=== PATIENT | female | born 1975 | race Caucasian/White ===

== ENCOUNTER 2016-08-29 08:43 | Day surgery (SDC) | payer BC ==
--- NOTE | 2016-08-29 07:03 | History and Physical Report ---
DATE: 08/29/2016. CHIEF COMPLAINT: This patient presents with a history of an intractable lumbar radiculitis which is postlaminectomy. HISTORY OF PRESENT ILLNESS: Due to the failure of all therapies, she is here for a spinal infusion trial with hydromorphone using an implanted catheter technique to determine if the implantation of a permanent system can be of any value in pain control. PAST MEDICAL HISTORY: Cardiac arrhythmia, seizure disorder. PAST SURGICAL HISTORY: Lumbar spinal surgery, gallbladder surgery, tubal ligation. MEDICATIONS ON ADMISSION: To be provided. ALLERGIES: Anti-inflammatories. SOCIAL HISTORY: Smoking, caffeine. FAMILY HISTORY: Thyroid disease, asthma, diabetes, coronary artery disease, hypertension, cancer. REVIEW OF SYSTEMS: The patient is appropriate and in no acute distress. The remainder of the systems review shows depression and difficulty sleeping. PHYSICAL EXAMINATION: General: Height is 5 feet, 3 inches. Weight is 120. Vital Signs: Unavailable. HEENT: Within normal limits. Lungs: Clear. Heart: Regular rate and rhythm. Abdomen: Nontender. Musculoskeletal: Examination of the musculoskeletal system shows diffuse tenderness throughout the lumbar spine. Range of motion causes pain throughout the low back and extending into the lower extremities. Ambulation: No assistive device utilized. Neurologic: Cranial nerves are intact. IMPRESSION: 1. POSTLUMBAR LAMINECTOMY SYNDROME, ICD-10 CODE M96.1. 2. LUMBAR RADICULITIS, ICD-10 CODE M54.16 AND M54.17. PLAN: The patient is here for an implanted spinal catheter infusion trial with hydromorphone to determine if implanting a permanent system would be of any value in pain control. The implanted catheter will involve an incision and the anchoring of the catheter to the supraspinous fascia which will be placed into the spinal space. The implanted catheter technique will minimize the incidence of spinal headache, although an epidural blood patch will also be performed. The implanted catheter will minimize the number of penetrations into the spinal space. The potential risks, side effects, and complications including spinal cord injury, nerve root injury, and spinal headache have been carefully reviewed and discussed. Information from the salesforce developer including a complete booklet informational based as well as CD ROM which outlines the side effects and complications have also been reviewed by the patient and discussed. We will consider this an outpatient procedure, although an overnight stay will be evaluated. LORRIE YUNG D.O. Date & Time JOB NUMBER: [id number] cc: Margarita Rogers
[~2016-08-29 08:43] MED LIST: ACETAMINOPHEN 1,000 MG/100 ML BTL IV ONE; CEFAZOLIN 2 Gram 2 GM/50 ML BAG IVPB ONE; FAMOTIDINE 20MG TABLET PO ONE; HYDROMORPHONE PF 2MG/ML AMP 0.004 MG in 0.9 % SODIUM CHLORIDE 10ML VIA 0.998 ML IV ONE; HYDROMORPHONE PF 2MG/ML AMP 2 MG in 0.9 % SODIUM CHLORIDE 500ML 499 ML IV ONE; MECLIZINE 25 MG TABLET PO ONE; METOCLOPRAMIDE 10 MG TABLET PO ONE
[2016-08-29] MEDS ORDERED: METOCLOPRAMIDE HCL 10 MG/2 ML VIAL IVP PRN (12:46)
[2016-08-29] MEDS ORDERED: OXYCODONE/APAP 10MG-325MG TABLET PO PRN ×2 (12:46)
[2016-08-29] MEDS ORDERED: SENNOSIDES/DOCUSATE SODIUM UD CAPSULE PO PRN ×2 (12:46)
[2016-08-29] MEDS ORDERED: NALOXONE 0.4 MG/1 ML VIAL IVP PRN (12:46)
[2016-08-29] MEDS ORDERED: AL HYDROX/MAG HYDROX 30ML UD PO PRN (12:46)
[2016-08-29] MEDS ORDERED: DIPHENHYDRAMINE HCL 25 MG CAPSULE PO PRN ×2 (12:46)
[2016-08-29] MEDS ORDERED: ACETAMINOPHEN 325 MG TAB PO PRN ×2 (12:46)
[2016-08-29] MEDS ORDERED: DIPHENHYDRAMINE HCL IV 50 MG/ML VIAL IVP PRN ×2 (12:46)
[2016-08-29] MEDS ORDERED: HYDROCODONE/APAP 7.5/325MG TABLET PO PRN (12:46)
[2016-08-29] MEDS ORDERED: TEMAZEPAM 15 MG CAPSULE PO PRN ×2 (12:46)
[2016-08-29] MEDS ORDERED: METOCLOPRAMIDE 10 MG TABLET PO PRN (12:46)
[2016-08-29] MEDS ORDERED: HYDROMORPHONE HCL 2 MG/ML VIAL IM PRN (12:46)
[2016-08-29] MEDS ORDERED: HYDROMORPHONE HCL 1 MG/ML CPJ IM PRN (12:46)
[2016-08-29] MEDS ORDERED: CLONAZEPAM 1MG TABLET PO PRN (12:48)
[2016-08-29] MEDS ORDERED: CAFFEINE 200 MG PO ONE (13:00)
[2016-08-29] MEDS: RINGERS SOLUTION,LACTATED 1,000 ML IV SCH (13:08)
[2016-08-29] MEDS: GABAPENTIN 300 MG CAPSULE PO SCH ×3 (14:26→21:07)
[2016-08-29] MEDS ORDERED: KETOROLAC 30 MG/ML VIAL IVP ONE (15:08)
[2016-08-29] MEDS ORDERED: BUPIVACAINE 0.5% W/EPI MPF 30 ML VIAL IVP ONE (15:08)
[2016-08-29] MEDS ORDERED: CEFAZOLIN 1G VIAL IM ONE (15:08)
[2016-08-29] MEDS ORDERED: HYDROMORPHONE HCL 2 MG/ML VIAL IV ONE (15:08)
[2016-08-29] MEDS ORDERED: FENTANYL PF 100MCG/2ML VIAL IV ONE ×2 (15:08→15:47)
[2016-08-29] MEDS ORDERED: LIDOCAINE 1% W/EPI 1:200,000 MPF 30ML SQ ONE (15:08)
[2016-08-29] MEDS ORDERED: PROPOFOL 10 MG/ML VIAL IV ONE (15:47)
[2016-08-29] MEDS ORDERED: *PACU ONLY* KETAMINE HCL 10 MG/ML (20ML) VIAL IV ONE (15:47)
[2016-08-29] MEDS ORDERED: MIDAZOLAM HCL 2MG/2ML VIAL IV ONE (15:47)
[2016-08-29] MEDS ORDERED: LIDOCAINE 2% MDV (20MG/ML) 20ML VIAL IV ONE (15:47)
--- NOTE | 2016-08-29 16:02 | Operative Note - Ferro ---
DATE OF SURGERY: 08/29/16 PREOPERATIVE DIAGNOSES: 1. POST LUMBAR LAMINECTOMY SYNDROME, ICD-10 CODE = M96.1 2. LUMBAR RADICULITIS, ICD-10 CODE = M54.16 AND M54.17. OPERATION: 1. FLUOROSCOPICALLY-GUIDED ACCESS SPINAL SPACE AT L2-3. PLACEMENT OF THIN- WALLED SPINAL CATHETER ADVANCED T10. 2. DIAGNOSTIC MYELOGRAPHY WITH RADIOLOGIC SUPERVISION AND INTERPRETATION. 3. SPINAL OPIOID BOLUS HYDROMORPHONE 0.003 MG. 4. INCISION, SUBCUTANEOUS DISSECTION, AND ANCHORING SPINAL CATHETER TO SUPRASPINOUS FASCIA USING ANCHORING DEVICE AND NONABSORBABLE SUTURE. 5. INCISION, SUBCUTANEOUS DISSECTION, AND CREATION OF SUBCUTANEOUS POUCH AT RIGHT POSTERIOR/SUPERIOR GLUTEAL MARGIN FOR EVENTUAL PLACEMENT OF PUMP. 6. TUNNELING BETWEEN POUCHES. PLACEMENT OF EXTERNAL PORTION OF SPINAL CATHETER INTO PUMP, POSTERIOR POUCH. INTERFACE CATHETER WITH SECOND CATHETER COMPONENT WITH CONNECTOR. 7. TUNNELING SECONDARY CATHETER 6 CM SUPERIOR EXITING SKIN. 8. INTERFACE EXTERNAL CATHETER TO INFUSION DEVICE SET TO DELIVER BY CONTINUOUS INFUSION HYDROMORPHONE AT 0.04 MG A DAY. 9. EPIDURAL BLOOD PATCH AT L3-4. 20 ML AUTOLOGOUS BLOOD DRAWN STERILE TECHNIQUE , LEFT ANTECUBITAL. SURGEON: LORRIE YUNG D.O. ANESTHESIA: LOCAL SEDATION. ANESTHESIA PROVIDER: LEONID PINTO CRNA. INDICATION: This patient presents with a history of an intractable lumbar radiculitis secondary to spinal surgery. Due to the failure of all therapies, she is here for an implanted spinal catheter infusion trial Hydromorphone to determine if the implantation of a permanent system can be of any value in pain control. PROCEDURE: Intravenous line, vital sign monitoring, IV sedation, prepped and draped sterile technique. Patient position prone. Under imaging, the spinal interspace at L2/3 was marked, infiltrated, and a 15-gauge spinal needle paramedian approach beveled with a long axis, was inserted into the spinal space. Using AP and lateral imaging, there was no fasciculations. No leg irritation. No indications of pain. The catheter was advanced and positioned midline T10. Diagnostic myelography performed, the resulting flow characteristics were appropriate in the space. No obstructions or redirections. A bolus of Hydromorphone 0.003 mg given into the spinal space. The skin above and below the needle infiltrated, incision made, and subcutaneous dissection was conducted to the supraspinous fascia. The needle was removed and the catheter was anchored to the supraspinous fascia using an anchoring device and nonabsorbable suture. At the right posterior/superior gluteal margin, a site picked by the patient for eventual pump implant, skin infiltrated, incision made , and subcutaneous dissection was conducted to form a small pouch. A tunneling tool was used to carry the pump catheter into the gluteal pouch and then the catheter was intersected and revised with a secondary catheter component by way of connector. The secondary catheter component was then tunneled 6 cm above this pouch exiting the skin. The external catheter was then interfaced with an infusion device, which was set to deliver by continuous infusion Hydromorphone at 0.04 mg a day. The midline incision was closed Vicryl for fascia, running subcuticular Vicryl for skin. The gluteal margin pouch was closed with nylon suture. At L3/4, one level below the dural puncture, skin infiltrated and an 18- gauge Tuohy needle with [id number] into the space and 20 mL drawn sterile technique autologous blood from the left antecubital. This blood was placed onto the field then an epidural blood patch was performed at this level with this blood. The dressing was reinforced. She was transported to the Recovery Room stable, flat, pillow under head and knees. She will be monitored for five hours, slowly elevated for one, if stable, discharge home. DISCHARGE INSTRUCTIONS: 1. The sites to remain clean and dry. No showering or bathing in any way that would compromise the dressings. If it happens, contact clinic. 2. Standard medications including Levaquin, the antibiotic, 500 mg once a day for 14 days. 3. Spinal opioid side-effects including; respiratory depression, nausea, vomiting, constipation, urinary retention, light-headedness, or rash have all been discussed and reviewed. All other instructions were provided, numbers to contact, problems given. At that point, the patient will be discharged. cc: Dr. Soares JOB NUMBER: [id number] MTDD
[2016-08-29] MEDS: CEFAZOLIN 2 Gram 2 GM/50 ML BAG IVPB SCH (17:34)
[2016-08-29] MEDS ORDERED: QUETIAPINE FUMARATE 100 MG TABLET PO SCH (22:00)
[2016-08-29] MEDS: HYDROCODONE/APAP 7.5/325MG TABLET PO PRN (22:55)
[2016-08-30] MEDS: RINGERS SOLUTION,LACTATED 1,000 ML IV SCH (01:16)
[2016-08-30] MEDS: CEFAZOLIN 2 Gram 2 GM/50 ML BAG IVPB SCH ×2 (02:18→09:32)
[2016-08-30] MEDS: HYDROCODONE/APAP 7.5/325MG TABLET PO PRN (09:32)
[2016-08-30] MEDS: GABAPENTIN 300 MG CAPSULE PO SCH (09:33)
[2016-08-30] MEDS ORDERED: DULOXETINE HCL 30 MG CAPSULE.DR PO SCH (10:00)
--- NOTE | 2016-08-30 12:28 | RADIOLOGY REPORT ---
EXAM: THORACOLUMBAR SPINE, ONE VIEW HISTORY: PAIN PUMP TRIAL. TECHNIQUE: A single AP portable view of the lumbar and lower thoracic portions of the spine were obtained. Comparison: None. FINDINGS: There is normal bone mineralization. Posterior fixation hardware is noted on the left at the lower lumbar levels. An intraspinal catheter is in place likely entering the spinal canal at the L2 level. Its radiopaque tip projects at the T10 vertebral body level. Post cholecystectomy change is present. IMPRESSION: INTRASPINAL CATHETER IN PLACE, DISCUSSED ABOVE. JOB NUMBER: [id number] MTDD
== END 2016-08-30 10:45 | disposition home or self-care (01) ==
LOC: SUR 08:43 → MEDSURG 12:50 → SUR 08-30 10:45
PROVIDERS: ATTEND Pain Medicine Interventional Pain Medicine
DX: M96.1 Postlaminectomy syndrome, not elsewhere classified (principal); M54.16 Radiculopathy, lumbar region; M54.17 Radiculopathy, lumbosacral region; F31.9 Bipolar disorder, unspecified
CPT/HCPCS: 72020; 62350; 00630; Q9967; J1885; J3010; J1170 ×3; J0690 ×2; J7040; J7120

== ENCOUNTER 2016-09-12 08:48 | Day surgery (SDC) | payer BC ==
--- NOTE | 2016-09-12 07:23 | History and Physical Report ---
DATE: 09/12/2016. CHIEF COMPLAINT: This patient presents with a history of a postlaminectomy radiculitis. Due to the failure of all therapies she had placement of an implanted spinal catheter infusion trial with hydromorphone. She has achieved up to 50 to 75 percent pain control. HISTORY OF PRESENT ILLNESS: During the previous five to seven days, she developed peripheral edema and abdominal distension. This was found to be related to a recent medication set up and taken through a psychiatrist in the form valproic acid with Depakote. The side effect was felt not to be the pump but the new medication. PAST MEDICAL HISTORY: Cardiac arrhythmia, seizure disorder. PAST SURGICAL HISTORY: Lumbar spinal surgery, gallbladder surgery, tubal ligation. MEDICATIONS ON ADMISSION: To be provided. ALLERGIES: Anti-inflammatories. SOCIAL HISTORY: Smoking and caffeine. FAMILY HISTORY: Thyroid disease, asthma, diabetes, coronary artery disease, hypertension, cancer. REVIEW OF SYSTEMS: The patient is appropriate and in no acute distress. The remainder of the systems review includes difficulty sleeping. PHYSICAL EXAMINATION: General: Height is 5 feet, 3 inches. Weight is 120 pounds. Vital Signs: Unavailable. HEENT: Within normal limits. Lungs: Clear. Heart: Regular rate and rhythm. Abdomen: Nontender. Musculoskeletal: Examination of the musculoskeletal system shows the primary pain pattern to be low back, hip, and leg. The dressings for the implanted spinal catheter trial are intact. The externalized catheter and all of the catheter components are still well within the sterile dressing. Neurologic: Cranial nerves are intact. IMPRESSION: 1. POSTLUMBAR LAMINECTOMY SYNDROME, ICD-10 CODE M96.1. 2. LUMBAR RADICULITIS, ICD-10 CODE M54.16 AND M54.17. 3. IMPLANTED SPINAL CATHETER INFUSION TRIAL WITH HYDROMORPHONE. PLAN: With respect to the trial with 50 to 75 percent pain control, the patient wants to move to the implant as quickly as possible. The side effects which were somewhat concerning appear to be related to a recently started oral medication. We have explained the potential risks of implanting the device only to find out later that the device may have been contributing to the peripheral edema. This would require medication change or even, ultimately, removal of the device. She understands and wants to move forward. LORRIE YUNG D.O. Date & Time JOB NUMBER: [id number] cc: Margarita Manning
[~2016-09-12 08:48] MED LIST changes: +HYDROMORPHONE HCL 0.016 GM in 0.9 % SODIUM CHLORIDE 10ML VIA 20 ML IV ONE; +HYDROMORPHONE HCL/PF 0.002 MG in 0.9 % SODIUM CHLORIDE 10ML VIA 0.998 ML IVP ONE; -HYDROMORPHONE PF 2MG/ML AMP 0.004 MG in 0.9 % SODIUM CHLORIDE 10ML VIA 0.998 ML IV ONE; -HYDROMORPHONE PF 2MG/ML AMP 2 MG in 0.9 % SODIUM CHLORIDE 500ML 499 ML IV ONE
[2016-09-12] MEDS ORDERED: BUPIVACAINE 0.5% W/EPI MPF 30 ML VIAL IVP ONE (15:02)
[2016-09-12] MEDS ORDERED: LIDOCAINE 1% W/EPI 1:200,000 MPF 30ML SQ ONE (15:02)
[2016-09-12] MEDS ORDERED: CEFAZOLIN 1G VIAL IM ONE (15:02)
[2016-09-12] MEDS ORDERED: OXYCODONE/APAP 10MG-325MG TABLET PO ONE (15:02)
[2016-09-12] MEDS ORDERED: *PACU ONLY* KETAMINE HCL 10 MG/ML (20ML) VIAL IV ONE (15:13)
[2016-09-12] MEDS ORDERED: PROPOFOL 10 MG/ML VIAL IV ONE (15:13)
[2016-09-12] MEDS ORDERED: ALFENTANIL HCL 500 MCG/1ML, 2ML AMP IV ONE (15:13)
[2016-09-12] MEDS ORDERED: LIDOCAINE 2% MDV (20MG/ML) 20ML VIAL IV ONE (15:13)
[2016-09-12] MEDS ORDERED: MIDAZOLAM HCL 2MG/2ML VIAL IV ONE (15:13)
--- NOTE | 2016-09-12 20:14 | Operative Note - Ferro ---
DATE OF SURGERY: 09/12/16 PREOPERATIVE DIAGNOSES: 1. POST LUMBAR LAMINECTOMY SYNDROME, ICD-10 CODE = M96.1 2. LUMBAR RADICULITIS, ICD-10 CODE = M54.16 AND M54.17. 3. IMPLANTED SPINAL CATHETER INFUSION TRIAL HYDROMORPHONE. OPERATION: 1. INCISION, SUBCUTANEOUS DISSECTION, AND REMOVAL OF EXTERNALIZED SPINAL CATHETER. 2. INCISION, SUBCUTANEOUS DISSECTION, AND AT RIGHT POSTERIOR GLUTEAL MARGIN FOR PLACEMENT OF PUMP IDENTIFIED MEDTRONIC 20 ML PROGRAMMABLE. 3. IDENTIFICATION OF INTERFACE BETWEEN IMPLANTED SPINAL CATHETER AND EXTERNAL CATHETER, CATHETER INTERFACE CUT EXTERNAL CATHETER REMOVED BY PULLING AWAY FROM WOUND. 4. RESECTION, REVISION OF INTERNAL SPINAL CATHETER WITH CONNECTOR AND NEW CATHETER COMPONENT FOR PUMP. 5. INTERFACE RESECTED CATHETER TO PUMP BY WAY OF CONNECTOR. 6. PLACEMENT OF 24-GAUGE PATTERSON NEEDLE INTO ACCESS PORT CLEARING CATHETER OF OPIOID AND CSF MIXTURE. 7. DIAGNOSTIC MYELOGRAPHY THROUGH THE ACCESS PORT WITH RADIOLOGIC SUPERVISION INTERPRETATION CONFIRMING CATHETER TIP T10. SMOOTH LINEAR FLOW OF CONTRAST TO SPINAL SPACE. NO KINKS OR LINKS IDENTIFIED. APPROPRIATE FUNCTIONALITY CONFIRMED. 8. PLACEMENT OF POUCH SECURED TO POSTERIOR FASCIA THREE POINTS USING PUMP EYELETS NONABSORBABLE SUTURE. 9. CLOSURE OF INCISION VICRYL FASCIA AND RUNNING SUBCUTICULAR VICRYL FOR SKIN. DERMABOND CLOSURE. 10. PROGRAMMING OF PUMP TO DELIVER BY CONTINUOUS INFUSION HYDROMORPHONE AT 0.2 MG PER DAY. SURGEON: LORRIE YUNG D.O. ANESTHESIA: LOCAL SEDATION. ANESTHESIA PROVIDER: MADISON CLARKE CRNA INDICATION: This patient presents with a history of post laminectomy radiculitis. An implanted spinal catheter infusion trial with Hydromorphone ongoing with 75% relief. A period of side-effects such as peripheral edema and abdominal tightness was noted but eventually was identified as related to her recently started medication Depakote. After review and discussion of the possibility that the pump may be contributing to the peripheral edema, the patient wanted the device implanted because of significant improvement in functionality. At that point, she was prepared for surgery. PROCEDURE: Intravenous line, vital sign monitoring, IV sedation, prepped, draped, sterile technique. Patient position prone. Sterile prep. Sterile technique. All of the external dressings were removed exposing the penetration or exterior catheter component at the right flank. The interface to the external pump was cut and the catheter kinked to prevent CSF leak. A sterile prep and sterile technique were performed under imaging. At the right posterior gluteal margin or a site that was initially set for the pump implant, was infiltrated with local, incision made, and subcutaneous dissection was conducted to the interface between the spinal catheter and the external catheter. This connection was cut and the external catheter removed by pulling away from the wound. The internal spinal catheter was then resected and revised and interfaced to a new catheter component by way of connector. This revised catheter component was then interfaced to the pump, which had been prefilled with Hydromorphone at 0.2 mg per mL. The incision, which was picked for the pump , was found to be directly at the belt line. Any repositioning inferior to this because of a short waist and short hip area, resulted in the pump being close to where she would be sitting. Considering moving the pump above the belt line encountered the lower rib margin, again because of a short waist and short stature. It was felt appropriate to keep the site for the pump at the lower most part of the belt line. The skin was further infiltrated, incision made, subcutaneous dissection was conducted to form a pouch of suitable size and depth for the pump. The pump was then secured to the posterior fascia at three points using nonabsorbable suture. Antibiotic irrigation. Bovie for hemostasis. A curved 24-gauge Patterson needle had been inserted into the pump and again aspirated then cleared and then contrast again injected confirming that the reposition had not caused any kinking or obstruction to the catheter. With the catheter secured and the pump secured, the incision was closed Vicryl for fascia and running subcuticular Vicryl for skin. Dermabond closure over the wound. She was transported to the Recovery Room. The pump was programmed to deliver by continuous infusion Hydromorphone at 0.2 mg per day. An increase from the end result of the trial at 0.16 mg a day. She was stable showing no side-effects from the procedure or the sedation. She was requesting to go home as quickly as possible. DISCHARGE INSTRUCTIONS: 1. The sites will remain clean and dry. No showering or bathing for at least 24 hours. At that point, the Dermabond will allow showering. 2. Standard medications resumed including Levaquin, the antibiotic, which she had been started on. She will complete it, be seen in the office in the next 5- 7 days to evaluate the site and consider more antibiotic. 3. Spinal opioid side-effects including respiratory depression, nausea, vomiting , constipation, urinary retention, light headedness or rash have all been discussed and reviewed in detail. She will contact the clinic if there are any problems. During the implant, it was found that the dressings had more than likely been removed almost completely. I suggested to the patient and a family member that these dressings that were placed today including the Dermabond should not be removed at any cost. Should it come loose, she is to contact the clinic for reinforcing. All other instructions, provided, numbers to contact, problems. She then be discharged stable. cc: Dr. Soares JOB NUMBER: [id number] MTDD
--- NOTE | 2016-09-13 08:48 | RADIOLOGY REPORT ---
EXAM: THORACIC AND LUMBAR SPINE, SINGLE VIEW HISTORY: POSTOP. TECHNIQUE: A single AP view of the thoracic and lumbar spines was obtained. Comparison: Intraoperative images from today's date. FINDINGS: Post surgical changes of the lumbar spine with facet screws in place. There is a stimulating wire with the proximal tip projecting over the T10 vertebral body. IMPRESSION: STIMULATING WIRE PROJECTING OVER T10. CORRELATE WITH INTRAOPERATIVE FINDINGS. JOB NUMBER: [id number] MTDD
== END 2016-09-12 12:39 | disposition home or self-care (01) ==
LOC: SUR 08:48
PROVIDERS: ATTEND Pain Medicine Interventional Pain Medicine
DX: M96.1 Postlaminectomy syndrome, not elsewhere classified (principal); M54.17 Radiculopathy, lumbosacral region; M54.16 Radiculopathy, lumbar region; I49.9 Cardiac arrhythmia, unspecified; G40.909 Epilepsy, unspecified, not intractable, without status epilepticus; F31.9 Bipolar disorder, unspecified
CPT/HCPCS: 62350; 62362; 00630; 62367; 72020; Q9967; J1170; J0690; C1755

== ENCOUNTER 2016-10-03 06:49 | Day surgery (SDC) | payer BC ==
[~2016-10-03 06:49] MED LIST changes: -HYDROMORPHONE HCL 0.016 GM in 0.9 % SODIUM CHLORIDE 10ML VIA 20 ML IV ONE; -HYDROMORPHONE HCL/PF 0.002 MG in 0.9 % SODIUM CHLORIDE 10ML VIA 0.998 ML IVP ONE
--- NOTE | 2016-10-03 07:14 | History and Physical - Ferro ---
CHIEF COMPLAINT/HISTORY OF CHIEF COMPLAINT: This patient with a recent implanted spinal opioid infusion system was seen on initial postop visit with no dressing which initially place and a wound which is opened both midline and in the posterior gluteal margin on the right. who was here at the time indicates she has been noncompliant and has a history of being noncompliant. She does have bipolar disease. At the time of the evaluation there was purulent drainage, part of the wound was open, superficial layers on the pump pouch right and at the midline catheter placement. The site was redressed, she was placed back on antibiotics although the initial antibiotic had been completed, we are even uncertain that she even took the initial antibiotic. She was at that point told that she would be given a one week continued use of antibiotic trial, if the incisions did not clean up close and improve in their appearance then the device would be removed. PAST MEDICAL HISTORY: Cardiac arrhythmia, seizure disorder, and bipolar disease. PAST SURGICAL HISTORY: Lumbar spinal surgery, gallbladder surgery, tubal ligation, and pump implant. MEDICATIONS ON ADMISSION: List to be provided. ALLERGIES: ANTIINFLAMMATORIES. FAMILY/PSYCHOSOCIAL HISTORY: Social history - Smoking and caffeine. Family history - Thyroid disease, asthma, diabetes, coronary artery disease, and hypertension. SYSTEMS REVIEW: The patient appears appropriate and in no acute distress. PHYSICAL EXAMINATION: Height is 5'3", weight is 120. Vital signs are not available, but she is afebrile. HEENT: Within normal limits. LUNGS: Clear. HEART: Regular rate and rhythm. ABDOMEN: Nontender. MUSCULOSKELETAL: Examination of the musculoskeletal system shows the midline incision and posterior gluteal margin incision to be covered with gauze and Op- Site. NEUROLOGIC: Cranial nerves are intact. IMPRESSION: 1. POST LUMBAR LAMINECTOMY SYNDROME, ICD-10 CODE M96.1. 2. LUMBAR RADICULITIS, ICD-10 CODE M54.16 AND M54.17. 3. WOUND BREAKDOWN. PLAN: This patient has severe depression. She has post traumatic stress disorder and bipolar disease. She apparently has violated all of the recommendations and requirements for the initial postop care and as stated we are even uncertain that she took her antibiotics. The dressing that was placed was pulled from the skin, it obviously had opened the incision by pulling scab. We are giving her another seven days to see if she could become compliant with respect to antibiotics and at least get the sites to heal, if not these devices will be removed. She will be evaluated prior to surgery to make the decision as to whether or not the system can be salvaged. Attempts at getting this patient wound clinic have met with multiple weeks perhaps as many as four week delay before she can get in which would be unsatisfactory with respect to the wound. We will evaluate, if the sites are clean and improving then the device will not be removed, if on the other hand they continue to look as though they are breaking down and infected the device will be removed. The patient understands this can be an outside procedure. JOB NUMBER: [id number] MTDD
[2016-10-03] MEDS ORDERED: VANCOMYCIN HCL 1 GM VIAL IVPB ONE (11:16)
[2016-10-03] MEDS ORDERED: LIDOCAINE 1% W/EPI 1:200,000 MPF 30ML SQ ONE (11:16)
[2016-10-03] MEDS ORDERED: CEFAZOLIN 1G VIAL IM ONE (11:16)
[2016-10-03] MEDS ORDERED: BUPIVACAINE 0.5% W/EPI MPF 30 ML VIAL IVP ONE (11:16)
[2016-10-03] MEDS ORDERED: HYDROMORPHONE HCL 2 MG/ML VIAL IV ONE (14:25)
[2016-10-03] MEDS ORDERED: HYDROCODONE/APAP 7.5/325MG TABLET PO ONE (14:25)
[2016-10-03] MEDS ORDERED: FENTANYL PF 100MCG/2ML VIAL IV ONE (14:26)
[2016-10-03] MEDS ORDERED: *PACU ONLY* KETAMINE HCL 10 MG/ML (20ML) VIAL IV ONE (14:26)
[2016-10-03] MEDS ORDERED: LIDOCAINE 2% MDV (20MG/ML) 20ML VIAL IV ONE (14:26)
[2016-10-03] MEDS ORDERED: MIDAZOLAM HCL 2MG/2ML VIAL IV ONE (14:26)
[2016-10-03] MEDS ORDERED: PROPOFOL 10 MG/ML VIAL IV ONE (14:26)
--- NOTE | 2016-10-03 20:04 | Operative Note - Ferro ---
DATE OF SURGERY: 10/03/16 PREOPERATIVE DIAGNOSES: 1. POST LAMINECTOMY SYNDROME, ICD-10 CODE = M96.1. 2. LUMBAR RADICULITIS, ICD-10 CODE = M54.16. 3. IMPLANTED SPINAL OPIOID FUSION SYSTEM, WOUND BREAKDOWN. OPERATION: 1. INCISION, SUBCUTANEOUS DISSECTION AND REMOVAL OF THE INDWELLING SPINAL CATHETER. 2. INCISION, SUBCUTANEOUS DISSECTION AND REMOVAL OF PROGRAMMABLE PUMP RIGHT POSTERIOR GLUTEAL MARGIN. 3. APPROPRIATE AEROBIC AND ANAEROBIC CULTURES. SURGEON: LORRIE YUNG D.O. ANESTHESIA: LOCAL SEDATION. ANESTHESIA PROVIDER: DOMINIK CASILLAS CRNA INDICATIONS: This patient with a history of a postlaminectomy radiculitis along with posttraumatic stress disorder, bipolar disease, and other cognitive impairments had a spinal fusion system placed. She was seen in routine follow- up 5 to 7 days after the implant. All the dressing had been removed and the sites had been scrubbed with some kind of a service line bus cleaner, which had resulted in a rash circumferentially around both midline and right posterior incisional sites. Without the dressings, the wounds had opened on both counts and there was purulent discharge. When in the discussion she was asked if she had been taking the antibiotics, she indicated she had some problems with it and stopped it but never contacted the Clinic. She was placed back on an antibiotic, given 5 to 7 days to clear the site. If so, we would evaluate for possible removal or further maintenance. As she arrived today, the sites were inspected and it was decided to remove the system since there was no improvement. PROCEDURE: Intravenous line, vital sign monitoring, IV sedation. Prepped and draped using sterile technique. Patient positioned prone. The midline incision and the right posterior gluteal margin incisions were both infiltrated and incision made at the midline. Subcutaneous dissection was conducted to the catheter. The suture and the anchors were removed and a purse-string placed around the penetration point. The purse-string was tightened to stop CSF loss as the midline spinal catheter was removed with the tip of the catheter identified. Imaging confirmed complete removal. Cultures were taken at this site , aerobic and anaerobic. At the right posterior gluteal margin generator pouch, skin infiltrated, incision made, subcutaneous dissection was conducted to the pouch. The pump was then exteriorized and the catheter components removed. Antibiotic irrigation, Bovie hemostasis. A dry powered antibiotic, Vancomycin, was then sprinkled into the incision. The incision had been previously irrigated with antibiotic solution. The incision was closed Vicryl for fascial and dian were used for both incisions to approximate the edges of the wounds. Pressure dressing placed. She was transported to the Recovery Room stable showing no side effects from the procedure or the sedation. DISCHARGE INSTRUCTIONS: 1. SITES WILL REMAIN CLEAN AND DRY UNTIL SHE RETURNS IN 5 TO 7 DAYS TO THE OFFICE FOR INSPECTION OF THE WOUND. 2. SHE HAS BEEN PLACED ON BACTRIM AFTER DISCUSSION WITH PHARMACY ON COVERAGE FOR STAPH AND POSSIBLE MRSA. THE BACTRIM DS ONE B.I.D. 14 DAYS. THE SITES WILL NOT BE COMPROMISED. THE DRESSING WILL NOT BE REMOVED UNTIL SHE IS SEEN IN THE OFFICE IN 5 TO 7 DAYS. PROBLEMS WITH THE DRESSINGS, THE OFFICE SHOULD BE CONTACTED. 3. STANDARD MEDICATIONS RESUMED. A 10-DAY USE OF NORCO 7.5/325 A DAY HAS BEEN PROVIDED, ALTHOUGH THE PATIENT HAS A COMPLICATED HISTORY OF MEDICATION USE. ALL OTHER INSTRUCTIONS PROVIDED. SHE WAS THEN DISCHARGED. cc: Dr. Soares JOB NUMBER: [id number] MTDD
== END 2016-10-03 10:00 | disposition home or self-care (01) ==
LOC: SUR 06:49
PROVIDERS: ATTEND Pain Medicine Interventional Pain Medicine
DX: T81.31XA Disruption of external operation (surgical) wound, not elsewhere classified, initial encounter (principal); M54.16 Radiculopathy, lumbar region; M96.1 Postlaminectomy syndrome, not elsewhere classified; G40.909 Epilepsy, unspecified, not intractable, without status epilepticus; F31.9 Bipolar disorder, unspecified; F17.200 Nicotine dependence, unspecified, uncomplicated
CPT/HCPCS: 62365; 62355; 00300; J3370; J3010; J1170; J0690

== ENCOUNTER 2017-03-20 10:47 | Day surgery (SDC) | payer BC ==
--- NOTE | 2017-03-20 04:58 | History and Physical Report ---
DATE: 03/19/2017. CHIEF COMPLAINT AND HISTORY OF CHIEF COMPLAINT: This patient presents with a history of postlaminectomy radiculitis. Her history includes previous implant and then removal of a spinal opioid infusion device infusing hydromorphone. At that time because of noncompliance, a wound pouch infection was noted. The device was removed and she was sent to the wound clinic. She has been treated successfully through the wound clinic and has provided documentation indicating that her wound is clean and no longer requires treatments. She has been cleared by her psychiatrist indicating that her medications are stable as well as by the wound clinic indicating that the wound is stable. Due to the transient success of the implanted device infusing hydromorphone for pain control and the complicated nature of her pain, by her request she is here for reimplantation of a permanent system. Appropriate measures have been set up for home care to ensure success and compliance. PAST MEDICAL HISTORY: Seizure disorder, cardiac arrhythmia, bipolar disease. SOCIAL HISTORY: Smoking and caffeine. FAMILY HISTORY: Thyroid disease, asthma, diabetes, coronary artery disease, hypertension, cancer. PAST SURGICAL HISTORY: Lumbar spinal surgery, gallbladder surgery, tubal ligation, and removal of spinal device. MEDICATIONS ON ADMISSION: To be provided. ALLERGIES: Anti-inflammatories. REVIEW OF SYSTEMS: The patient seems appropriate and in no acute distress. The remainder of the systems review shows difficulty with sleeping. PHYSICAL EXAMINATION: General: Height and weight are unknown. Vital Signs: Unavailable. HEENT: Within normal limits. Lungs: Clear. Heart: Regular rate and rhythm. Abdomen: Nontender. Musculoskeletal: Examination of the musculoskeletal system shows the midline incision as well as the right posterior gluteal incisional site for the previous pump to be intact. Healing of the wounds is noted. There are no erythematous changes, no maculopapular rashes, no suggestion of infection at the sites. The chronic pain pattern is low back with a bilateral lower extremity extension. The incisional site for the spinal fusion is identified. Lower extremity functionality shows pain across both an L4 and an L5 pattern. Motor and sensory field evaluation shows no focal deficits and no sensory field abnormalities. Ambulation: No assistive device utilized. Neurologic: Cranial nerves are intact. IMPRESSION: 1. POSTLUMBAR LAMINECTOMY SYNDROME, ICD-10 CODE M96.1. 2. LUMBAR RADICULITIS, ICD-10 CODE M54.16 AND M54.17. PLAN: The patient is here for reimplantation of a spinal infusion system after appropriate clearance and evaluation. We have also taken measures and the patient has complied and set up an appropriate support system at home to ensure compliance in the early postoperative period which was breached previously resulting in the wound infection and removal of the device. Since the device was on the right, we will place the device on the left. We are considering above or below the belt line, which ever site seems to be stable. The patient understands. The infusion will be started at a starting dose of hydromorphone at 0.05 mg a day. The spinal puncture for placement of the spinal catheter will require an epidural blood patch. The patient understands she will be placed flat for four hours and then slowly elevated until stable and can be discharged. She will then be discharged to home. Otherwise an overnight stay will be considered. The potential risks, side effects, and complications including spinal cord injury, nerve root injury, and spinal headache have all been discussed and reviewed. She understands this and has consented. JOB NUMBER: [id number] cc: Amira Soares D.O. MTDD
[~2017-03-20 10:47] MED LIST changes: -CEFAZOLIN 2 Gram 2 GM/50 ML BAG IVPB ONE; +HYDROMORPHONE HCL 0.008 GM in 0.9 % SODIUM CHLORIDE 10ML VIA 20 ML IV ONE; +HYDROMORPHONE HCL/PF 0.002 MG in 0.9 % SODIUM CHLORIDE 10ML VIA 0.998 ML IVP ONE; +HYDROMORPHONE PF 2MG/ML AMP 0.004 MG in 0.9 % SODIUM CHLORIDE 10ML VIA 0.998 ML IV ONE; +VANCOMYCIN HCL 1,000 MG in DEXTROSE 5 % IN WATER 250 ML IVPB ONE
[2017-03-20] MEDS ORDERED: FENTANYL PF 100MCG/2ML VIAL IV ONE (10:48)
[2017-03-20] MEDS ORDERED: LIDOCAINE 2% MDV (20MG/ML) 20ML VIAL IV ONE (10:48)
[2017-03-20] MEDS ORDERED: BUPIVACAINE 0.75% W/EPI MPF 30ML VIAL IVP ONE (10:48)
[2017-03-20] MEDS ORDERED: LIDOCAINE 1% W/EPI 1:200,000 MPF 30ML SQ ONE (10:48)
[2017-03-20] MEDS ORDERED: CEFAZOLIN 1G VIAL IM ONE (10:48)
[2017-03-20] MEDS ORDERED: MIDAZOLAM HCL 2MG/2ML VIAL IV ONE (10:48)
[2017-03-20] MEDS ORDERED: HYDROMORPHONE HCL 2 MG/ML VIAL IV ONE (10:48)
[2017-03-20] MEDS ORDERED: PROPOFOL 10 MG/ML VIAL IV ONE (10:48)
[2017-03-20] MEDS ORDERED: METOCLOPRAMIDE 10 MG TABLET PO PRN (15:07)
[2017-03-20] MEDS ORDERED: HYDROMORPHONE HCL 1 MG/ML SYRINGE IM PRN (15:07)
[2017-03-20] MEDS ORDERED: DIPHENHYDRAMINE HCL 25 MG CAPSULE PO PRN ×2 (15:07)
[2017-03-20] MEDS ORDERED: HYDROCODONE/APAP 7.5/325MG TABLET PO PRN ×2 (15:07)
[2017-03-20] MEDS ORDERED: RINGERS SOLUTION,LACTATED 1,000 ML IV SCH (15:07)
[2017-03-20] MEDS ORDERED: OXYCODONE/APAP 10MG-325MG TABLET PO PRN ×2 (15:07)
[2017-03-20] MEDS ORDERED: HYDROMORPHONE HCL 2 MG/ML VIAL IM PRN (15:07)
[2017-03-20] MEDS ORDERED: ACETAMINOPHEN 325 MG TAB PO PRN ×2 (15:07)
[2017-03-20] MEDS ORDERED: DIPHENHYDRAMINE HCL IV 50 MG/ML VIAL IVP PRN ×2 (15:07)
[2017-03-20] MEDS ORDERED: TEMAZEPAM 15 MG CAPSULE PO PRN ×2 (15:07)
[2017-03-20] MEDS ORDERED: AL HYDROX/MAG HYDROX 30ML UD PO PRN (15:07)
[2017-03-20] MEDS ORDERED: SENNOSIDES/DOCUSATE SODIUM UD CAPSULE PO PRN ×2 (15:07)
[2017-03-20] MEDS ORDERED: METOCLOPRAMIDE HCL 10 MG/2 ML VIAL IVP PRN (15:07)
[2017-03-20] MEDS ORDERED: RINGERS SOLUTION,LACTATED 1,000 ML IV PRN (15:42)
[2017-03-20] MEDS ORDERED: NALOXONE 0.4 MG/1 ML VIAL IVP PRN (15:46)
[2017-03-20] MEDS ORDERED: ALBUTEROL HFA 8 GM INHALER INH PRN (15:48)
[2017-03-20] MEDS ORDERED: QUETIAPINE FUMARATE 100 MG TABLET PO SCH (22:00)
[2017-03-20] MEDS ORDERED: PATIENT OWN MED: PRAZOSIN 2 MG PO SCH (22:00)
[2017-03-20] MEDS ORDERED: LEVETIRACETAM 500 MG TABLET PO SCH (22:00)
[2017-03-20] MEDS ORDERED: VANCOMYCIN HCL 1,000 MG in DEXTROSE 5 % IN WATER 250 ML IVPB ONE ×2 (23:30)
--- NOTE | 2017-03-21 08:45 | RADIOLOGY REPORT ---
EXAM: THORACOLUMBAR SPINE, ONE VIEW HISTORY: PAIN PUMP IMPLANT. TECHNIQUE: A single AP portable supine view of the lower thoracic and lumbar portions of the spine was obtained. Comparison: Single view spine dated 09/12/16. Same day intraoperative radiographs. FINDINGS: There are transitional thoracolumbar and lumbosacral segments. An interspinal catheter is in place appearing to enter the spinal canal at the level of the second most superior non-rib bearing vertebra. The tip of the catheter is at the level of the third most inferior rib bearing vertebra. The catheter extends inferiorly and leftward with the mechanical/electronic pump in the left gluteal soft tissues. Post surgical changes are again noted at the lumbosacral junction and surgical clips in the right upper quadrant. There are mild degenerative changes scattered throughout the visualized spine with minor levoconvex curvature centered at the thoracolumbar junction. IMPRESSION: INTERSPINAL CATHETER AND PUMP, DESCRIBED ABOVE. JOB NUMBER: [id number] MTDD
[2017-03-21] MEDS ORDERED: DULOXETINE HCL 30 MG CAPSULE.DR PO SCH (10:00)
[2017-03-21] MEDS ORDERED: ABILIFY 10 MG PO SCH (10:00)
--- NOTE | 2017-03-21 20:33 | Operative Note - [place] ---
DATE OF SURGERY: 03/20/17 PREOPERATIVE DIAGNOSES: 1. POST LUMBAR LAMINECTOMY SYNDROME, ICD-10 CODE = M96.1. 2. LUMBAR RADICULITIS, ICD-10 CODE = M54.16 AND M54.17. SURGERY: 1. FLUOROSCOPIC-GUIDED EPIDURAL ACCESS SPINAL SPACE AT L2-3, PLACEMENT OF THIN- WALLED SPINAL CATHETER POSITIONED T10-11. 2. DIAGNOSTIC MYELOGRAPHY WITH RADIOLOGIC SUPERVISION AND INTERPRETATION. 3. SPINAL OPIOID BOLUS HYDROMORPHONE 0.002 MG. 4. INCISION, SUBCUTANEOUS DISSECTION, AND ANCHORING OF SPINAL CATHETER TO SUPRASPINOUS FASCIA USING ANCHORING DEVICE AND NONABSORBABLE SUTURE. 5. INCISION, SUBCUTANEOUS DISSECTION, AND CREATION OF SUBCUTANEOUS POUCH AT LEFT POSTERIOR/SUPERIOR GLUTEAL MARGIN FOR PLACEMENT OF PUMP IDENTIFIED A MEDTRONIC PROGRAMMABLE 20 ML. 6. TUNNELING OF SPINAL CATHETER POUCH INTO PUMP POUCH. TUNNELING CATHETER INTO POUCH. INTERFACE SPINAL CATHETER WITH SECOND CATHETER COMPONENT BY WAY OF CONNECTOR. INTERFACE SECOND CATHETER COMPONENT TO PUMP. 7. PLACEMENT OF PUMP INTO POUCH SECURING TO POSTERIOR FASCIA WITH NONABSORBABLE SUTURE WITH THREE POINTS TO PUMP EYELETS. 8. PLACEMENT OF CURVED #24 GAUGE PATTERSON NEEDLE INTO ACCESS PORT. PROGRAMMABLE PUMP ASPIRATION AND CLEARING 1 ML CATHETER CONTENTS. CONTRAST INJECTED. THE RESULTING MYELOGRAPHY WITH RADIOLOGIC SUPERVISION AND INTERPRETATION CONFIRMING CATHETER POSITION, AGAIN AT T10-11 SHOWING SMOOTH LINEAR FLOW OF CONTRAST WITHIN THE PUMP, CONTRAST MOVING THROUGH THE PUMP/CATHETER CONNECTION. NO KINKS , NO BENDS, NO LEAKS. CATHETER FUNCTIONALITY AND PATENCY CONFIRMED. 9. CLOSURE OF BOTH INCISIONS WITH VICRYL FOR FASCIA, RUNNING SUBCUTICULAR VICRYL FOR SKIN. DERMABOND CLOSURE. 10. EPIDURAL BLOOD PATCH AT L3-4, 20 ML AUTOLOGOUS BLOOD, STERILE TECHNIQUE. 11. PROGRAMMING OF PUMP TO DELIVER BY CONTINUOUS INFUSION OF HYDROMORPHONE AT 0.05 MG PER DAY. SURGEON: LORRIE YUNG D.O. ANESTHESIA: LOCAL SEDATION. ANESTHESIA PROVIDER: DOMINIK CASILLAS CRNA INDICATIONS: This patient presents with a history of intractable post lumbar laminectomy radiculitis. Due to the failure of therapy and after appropriate clearance from wound clinic and psychiatry for wound stabilization to the right and clearance with respect to psychiatric medications, she is here for a pump implant. She has a failure of all other therapies, a previous pump that had to be removed because of non-compliance and a pouch infection. SURGERY: Intravenous line, vital sign monitoring, IV sedation, prepped and draped in sterile technique. Under imaging, the spinal interspace at L2-3 was marked from the left. Skin infiltrated, then a #20 gauge spinal needle beveled with a long axis and a paramedian approach was inserted using AP and lateral imaging. Careful meticulous placement of the needle into the posterior spinal space with CSF flow, a thin-walled spinal catheter's was advance, positioned at T10-11. There were no fasciculations or abnormal movements or complaints of pain during needle placement or catheter placement. The catheter was clamped, limiting CSF loss. The skin above and below the needle infiltrated, incision made, and subcutaneous dissection was conducted to the supraspinous fascia. The needle was remove and the catheter was anchored to the supraspinous fascia using an anchoring device and nonabsorbable suture. CSF was still noted coming through the catheter. The catheter was clamped. The lock stopped CSF loss. Contrast was then injected. 1 mL of contrast was injected. Resulting myelogram with radiologic supervision and interpretation showed appropriate flow characteristics. No obstructions, redirections. The catheter was straight. No abnormal flow characteristics. 1 mL of Hydromorphone 0.002 mg was then injected as a bolus into the spinal space. The catheter was then clamped. At the left posterior gluteal margin, site picked by the patient for the pump identified as a Medtronic 20 mL programmable. Skin infiltrated, incision made, and subcutaneous dissection was conducted to form a pouch of suitable size and depth for the pump. A tunneling tool was used to carry the spinal catheter into the pump pouch and the catheter was then interfaced and resected with the second catheter component by way of connector. The second catheter component was then interfaced to a pump placed onto the field, pre-filled with Hydromorphone at 1 mg/mL. With the interface between the pump and catheter, the pump was placed into the pouch, secured to the facia with nonabsorbable suture at three points to pump eyelets. A #24 gauge Patterson needle was inserted into the access port and 1 mL of catheter contents was then aspirated, clearing the catheter of previous contrast, opioid, and CSF. Diagnostic myelography was then performed. The resulting flow characteristics within the pump showed no leaks, kinks, or bends. The catheter pump connection identified. There were no kinks. Contrast moved through the catheter within the subcutaneous tissues with no tears or kinks. Catheter tip at T10-11. Appropriate flow characteristics in the spinal space noted. Full functionality of the catheter/pump combination was then noted. The incision was then closed at both sites with Vicryl for facia, running subcuticular Vicryl for skin, Dermabond closure approximating the wound. The pump was programmed to deliver by continuous infusion Hydromorphone at 0.05 mg a day. She was transported to the Recovery Room stable showing no side effects from the surgery or the sedation. Prior to the discharge, an epidural blood patch was performed at L3-4 one level below the dural puncture with 20 mL of autologous blood drawn under sterile technique left antecubital. She was then transported to the Recovery Room flat with pillow under head and knees. She will stay flat for four hours and then slowly elevate. We will keep this patient overnight for observation and discharge in the morning because of a complicated medical history. IN THE MORNING DISCHARGE INSTRUCTIONS: 1. The sites will remain clean and dry. The Dermabond will allow showering but no soaking in water and no bathing, just simply shower. 2. Standard medications resumed including Bactrim, the antibiotic DS once, twice a day. 3. Spinal opioid side-effects; respiratory depression, nausea, vomiting, constipation, urinary retention, lightheadedness or rash have all been discussed and reviewed. Her standard medications will continue. I will provide her with five days of Percocet 10/325 four a day to manage incisional pain but only for five days. She has [place] 10/325 at home she will use not in combination with the Percocet but once the Percocet five-day script is completed. This will be to manage some of the residual pain. 4. The office will contact the patient at home. We will see her within the next three days to check the sites and do a slight increase in her infusion. All other instructions provided, numbers to contact if problems given. She will then be prepared for discharge. cc: Dr. Soares JOB NUMBER: [id number] MTDD
== END 2017-03-20 18:45 | disposition home or self-care (01) ==
LOC: SUR 10:47 → MEDSURG 14:30 → SUR 18:45
PROVIDERS: ATTEND Pain Medicine Interventional Pain Medicine
DX: M96.1 Postlaminectomy syndrome, not elsewhere classified (principal); M54.16 Radiculopathy, lumbar region; M54.17 Radiculopathy, lumbosacral region; R56.9 Unspecified convulsions; G40.909 Epilepsy, unspecified, not intractable, without status epilepticus
CPT/HCPCS: 62367; 72020; 62350; 62362; 00630; Q9967; J3370; J3010; J1170 ×2; J0690; J7060